=== PATIENT | male | born 1980 | race Two or more races ===

== ENCOUNTER 2019-06-26 09:44 | Inpatient (IN) | payer OTHER ==
[~2019-06-26] VITALS: Ht 188 cm; Wt 116.2 kg
[2019-06-26] VITALS (13 sets, daily range): BP systolic 118–171; BP diastolic 72–103
[2019-06-26] MEDS ORDERED: fentaNYL 100 mcg/2 mL IV ONE (10:03)
[2019-06-26] MEDS ORDERED: Midazolam 2mg/2ml Inj ONE (10:03)
[2019-06-26] MEDS ORDERED: DiphenhydrAMINE 25mg Tab ORAL PRN (10:15)
[2019-06-26] MEDS ORDERED: Chloraseptic Spray 20mL Bottle ORAL PRN (10:15)
[2019-06-26] MEDS ORDERED: Morphine Sulfate 4mg/ml Inj (IV USE ONLY) IM PRN (10:15)
[2019-06-26] MEDS ORDERED: HYDROcodone/Acetamin 10/325 tab ORAL PRN (10:15)
[2019-06-26] MEDS ORDERED: TYLENOL EXTRA500 MG ORAL (10:25)
[2019-06-26] MEDS ORDERED: Lidocaine 1% MPF 10mg/ml 5ml ONE (10:25)
[2019-06-26] MEDS ORDERED: IBUPROFEN600 MG ORAL (10:25)
[2019-06-26] MEDS ORDERED: LORazepam 0.5mg tab ORAL PRN (10:30)
[2019-06-26 10:45] LABS: BASOPHILS % (AUTO) 0.9 % (0.0-2.0); EOSINOPHILS % (AUTO) 8.8 % (0.0-3.0); HEMOGLOBIN 14.3 G/DL (14.2-18.0); MEAN CORPUSCULAR VOLUME 91 FL (80-99); NEUTROPHILS % (AUTO) 63.4 % (45.0-75.0); PLATELET COUNT 208 K/UL (150-450); RED BLOOD COUNT 4.51 M/UL (4.70-6.10); RED CELL DISTRIBUTION WIDTH 11.5 % (11.6-14.8); WHITE BLOOD COUNT 9.4 K/UL (4.8-10.8)
[2019-06-26] MEDS ORDERED: Heparin 5000 units/ml inj ONE (11:07)
[2019-06-26] MEDS ORDERED: Thrombin 5000 units TOPIC ONE ×2 (11:07→11:13)
[2019-06-26] MEDS ORDERED: Gelfoam Size TOPIC ONE (11:08)
[2019-06-26] MEDS ORDERED: Bacitracin 50000 Units Vial ONE (11:08)
[2019-06-26] MEDS ORDERED: Bupivacaine w/Epi 0.5% 30ml Vial INJ ONE (11:08)
--- NOTE | 2019-06-26 11:24 | Pre-Procedure Note/Attestation ---
Pre-Procedure Note/Attestation Complete Prior to Procedure Planned Procedure: not applicable Procedure Narrative: L5/S1 ALIF Indications for Procedure Pre-Operative Diagnosis: Back pain, Lumbar radiculapathy, Lumbar disk herniation Attestation I attest that I discussed the nature of the procedure; its benefits; risks and complications; and alternatives (and the risks and benefits of such alternatives ), prior to the procedure, with the patient (or the patient's legal industrial relations representative). I attest that, if there was a reasonable possibility of needing a blood transfusion, the patient (or the patient's legal industrial relations representative) was given the [facility] standardized written summary, pursuant to the Luiz Elizabeth Blood Safety Act ([place] Health and Safety Code # 1645, as amended). I attest that I re-evaluated the patient just prior to the surgery and that there has been no change in the patient's H&P, except as documented below: KAMAR TENA M.D. Jun 26, 2019 11:24
[2019-06-26] MEDS ORDERED: Rocuronium Bromide 50mg/5ml Inj IV ONE (11:26)
[2019-06-26] MEDS ORDERED: Succinylcholine 20mg/ml 10ml vial ONE (11:26)
[2019-06-26] MEDS ORDERED: Acetaminophen IV (Non formulary) 1,000 MG/100 ML ML IV ONE (11:32)
[2019-06-26] MEDS ORDERED: Sterile Water Irrig 1000ml IRRIG ONE (11:32)
[2019-06-26] MEDS ORDERED: LR 1000ml ONE (11:32)
[2019-06-26] MEDS ORDERED: NS Irrig 1000ml ONE (11:32)
[2019-06-26] MEDS ORDERED: NS Irrig 1000ml IRRIG ONE ×2 (12:08→12:51)
[2019-06-26] MEDS ORDERED: Morphine Sulfate 10mg/ml Inj ONE (12:36)
[2019-06-26] MEDS ORDERED: Sodium Chloride 10ml vial INJ ONE (12:38)
[2019-06-26] MEDS ORDERED: Acetaminophen (Non formulary) 100 ML IV ONE (12:45)
--- NOTE | 2019-06-26 12:51 | Anethesia Preoperative Eval ---
Anesthesia Pre-op PMH/ROS General Date of Evaluation: Jun 26, 2019 Time of Evaluation: 11:20 Anesthesiologist: Nancy ASA Score: ASA 2 Mallampati Score Class I : Soft palate, uvula, fauces, pillars visible Class II: Soft palate, uvula, fauces visible Class III: Soft palate, base of uvula visible Class IV: Only hard plate visible Mallampati Classification: Class II Surgeon: Leana Diagnosis: Lumbar radiculopathy Surgical Procedure: Anterior L5-S1 fusion Anesthesia History: none Family History: no anesthesia problems Allergies: Coded Allergies: Cultivated Oat Pollen (Verified Allergy, Intermediate, watery eyes; sneezing, 06/25/19) Medications: see eMAR Patient NPO?: Yes NPO Date: Jun 25, 2019 NPO Time: 2099 Past Medical History Cardiovascular: Denies: HTN, CAD, GA, valve dz, arrhythmia, other Pulmonary: Denies: asthma, COPD, CHARISSE, other Gastrointestinal/Genitourinary: Reports: GERD; Denies: CRI, ESRD, other Neurologic/Psychiatric: Reports: other - chronic pain; Denies: dementia, CVA, depression/anxiety, TIA Endocrine: Denies: DM, hypothyroidism, steroids, other HEENT: Denies: cataract (L), cataract (R), glaucoma, TORRES MARTINEZ (L), TORRES MARTINEZ (R), other Hematology/Immune: Denies: anemia, DVT, bleeding disorder, other Musculoskeletal/Integumentary: Denies: OA, RA, DJD, DDD, edema, other Other: other - overweight PMH Narrative: As above PSxH Narrative: Appendectomy Anesthesia Pre-op Phys. Exam Physician Exam Last Vital Signs Date Time Temp Pulse Resp B/P (MAP) Pulse Ox O2 Delivery O2 Flow Rate FiO2 06/26/19 10:33 Room Air 06/26/19 10:17 97.6 54 18 120/73 (89) 97 Constitutional: NAD Neurologic: CN 2-12 intact Cardiovascular: RRR, no M/R/G Respiratory: CTA Gastrointestinal: S/NT/ND Airway Exam Mallampati Score: Class II MO: full Neck: flexible ROM: full Teeth: intact Dentures: no upper, no lower Anesthesia Pre-op A/P Labs Hematology Test 06/26/19 10:17 White Blood Count 9.4 K/UL (4.8-10.8) Red Blood Count 4.51 M/UL (4.70-6.10) L Hemoglobin 14.3 G/DL (14.2-18.0) Hematocrit 41.0 % (42.0-52.0) L Mean Corpuscular Volume 91 FL (80-99) Mean Corpuscular Hemoglobin 31.7 PG (27.0-31.0) H Mean Corpuscular Hemoglobin Concent 34.9 G/DL (32.0-36.0) Red Cell Distribution Width 11.5 % (11.6-14.8) L Platelet Count 208 K/UL (150-450) Mean Platelet Volume 6.9 FL (6.5-10.1) Neutrophils (%) (Auto) 63.4 % (45.0-75.0) Lymphocytes (%) (Auto) 19.0 % (20.0-45.0) L Monocytes (%) (Auto) 8.0 % (1.0-10.0) Eosinophils (%) (Auto) 8.8 % (0.0-3.0) H Basophils (%) (Auto) 0.9 % (0.0-2.0) Studies Pre-op Studies: EKG - SR Risk Assessment & Plan Assessment: ASA 2 Plan: GA with ETT neuromonitoring Status Change Before Surgery: No Pre-Antibiotics Drug: Ancef 2gr Given Within 1 Hr of Incision: Yes Time Given: 12:10 Tim Cruz MD Jun 26, 2019 12:51
[2019-06-26] MEDS ORDERED: LR 1000ml 1,000 ML IVLG SCH (12:57)
[2019-06-26] MEDS ORDERED: Hydromorphone 0.5mg/0.5ml inj IVP PRN (13:00)
[2019-06-26] MEDS ORDERED: Ketorolac 30mg Inj IV PRN (13:00)
[2019-06-26] MEDS ORDERED: Meperidine 25mg/0.5ml Inj (FOR RIGORS ONLY) IV PRN (13:00)
[2019-06-26] MEDS ORDERED: DiphenhydrAMINE 50mg/ml Inj IVP PRN (13:00)
[2019-06-26] MEDS ORDERED: Ketorolac 30mg Inj ONE (13:11)
[2019-06-26] MEDS ORDERED: Glycopyrrolate 0.2mg/ml 1ml Vial ONE (13:11)
[2019-06-26] MEDS ORDERED: PCA Education Pamphlet MISC ONE (13:45)
[2019-06-26] MEDS ORDERED: Rate Change PCA 1 Each MISC PRN (13:45)
[2019-06-26] MEDS ORDERED: Propofol 200mg/20ml IV ONE (14:00)
--- NOTE | 2019-06-26 14:31 | Brief Operative Note ---
Immediate Post Operative Note Operative Note Chief Complaint: Back pain, Lumbar radiculapathy, Disk herniation Pre-op Diagnosis: Back pain, Lumbar radiculapathy, Lumbar disk herniation Procedure: L5/S1 anterior lumbar interbody fusion Post-op Diagnosis: Same as preop Post-op Diagnosis: same as pre-op Surgeon: John Dueñas Delivery Tech: Tomer Crocker Additional Surgeons: Kris Reagan Anesthesiologist: Camden Anesthesia: general Specimen: yes - L5/S1 disk Complications: none Condition: stable Fluids: see anesthesia record Estimated Blood Loss: volume - 30cc Drains: none Packing: None Implant(s) used?: Yes - L5/S1 interbody Cage. KAMAR DUEÑAS M.D. Jun 26, 2019 14:31
--- NOTE | 2019-06-26 14:43 | Immediate Post-Op Evaluation ---
Immediate Post-Op Evalulation Immediate Post-Op Evalulation Procedure: Anterior L5-S1 discectomy fusion Date of Evaluation: Jun 26, 2019 Time of Evaluation: 14:42 IV Fluids: 1600 Blood Products: none Estimated Blood Loss: 50 Urinary Output: 200 Blood Pressure Systolic: 142 Blood Pressure Diastolic: 78 Pulse Rate: 62 Respiratory Rate: 22 O2 Sat by Pulse Oximetry: 99 Temperature (Fahrenheit): 97.7 Pain Score (1-10): 1 Nausea: No Vomiting: No Complications none Patient Status: reacts, patent, extubated, none Hydration Status: adequate Tim Cruz MD Jun 26, 2019 14:43
[2019-06-26] MEDS: PCA Morphine 1mg/ml 30 ML IV PRN (15:16)
--- NOTE | 2019-06-26 15:20 | Diagnostic Imaging Report ---
Indication: Intraoperative imaging COMPARISON: None FINDINGS: Multiple fluoroscopic images were obtained intraoperatively. Crosstable images in the operating room show localization of L5-S1 followed by anterior discectomy and fusion. IMPRESSION: Intraoperative imaging as described above
[2019-06-26] MEDS ORDERED: D5 1/2NS 1,000 ML IV SCH (15:48)
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
--- NOTE | 2019-06-26 16:00 | NUR ---
NURSE NOTES: Patient arrived to unit at 1545 via bed, accompanied by RN. Received report from Emelina WILCOX. Belongings checked at bedside with Emelina RN. Patient is drowsy but arousable to voice, able to follow commands, no acute distress noted, reporting no pain at this time. Surgical site dressing clean and intact, IV intact and patent. On PLANT ANATOMIST, settings checked and verified against order. Patient placed on etc02 monitoring, placed on continuous pulseox. Orellana to gravity drainage, draining clear, yellow urine. SCD's on. Side rails upx3, bed low and locked, call light within reach.
--- NOTE | 2019-06-26 18:40 | NUR ---
NURSE NOTES: Called Dr. Frost regarding cotton catheter (no order for d/c entered), and no post op antibiotics ordered. Left voicemail, awaiting callback.
[2019-06-26] MEDS: D5 1/2NS 1,000 ML IV SCH (19:18)
--- NOTE | 2019-06-26 19:18 | NUR ---
NURSE NOTES: Received callback from Dr. Frost. Orders received, read back and entered.
[2019-06-26] MEDS: PCA shift volume MISC SCH (19:25)
--- NOTE | 2019-06-26 19:30 | NUR ---
NURSE NOTES: Received pt from JERI Romo. AAO x 4, on room air. IV site intact and running IVF. Orellana secured and draining well by gravity. STRIP CATCHER setting checked. Surgical dressing dry and clean. SCD's on. No labored breathing. Bed locked, lowest position, side rails up, call light within reach. Will continue to monitor.
[2019-06-26] MEDS: LORazepam 0.5mg tab ORAL SCH (20:08)
[2019-06-26] MEDS: Dronabinol 2.5mg Cap ORAL SCH (20:08)
[2019-06-26] MEDS: ceFAZolin 1gm/50ml Premix 50 ML IV SCH (20:08)
--- NOTE | 2019-06-26 22:30 | Operative Note - Dictated ---
DATE OF OPERATION: 06/26/2019 PREOPERATIVE DIAGNOSIS: Radiculopathy. POSTOPERATIVE DIAGNOSIS: Radiculopathy. PROCEDURE: 1. Anterior retroperitoneal exposure, interbody fusion L5-S1. 2. Ligation of the middle sacral artery and vein. 3. Mobilization of the right and left iliac artery and vein. 4. Mobilization of the left iliac artery and vein. SURGEON: Dejan Reagan M.D. CO-SURGEON: John Dueñas M.D. ANESTHESIA: General. EBL: 50 mL. OPERATIVE NOTE: Risks, benefits, complications, alternative therapies explained to the patient. Consent obtained. Risks and benefits have been explained to the patient included, but not limited to bleeding, infection, damage to bowel, damage to ureter, wound infection, wound dehiscence, DVT, PE, loss of limb, loss of life, high-risk nature of the operation, the possibility of retrograde ejaculation, sexual dysfunction fully explained and stressed to the patient. All questions answered. OPERATIVE TECHNIQUE: The patient was placed in supine position. I made a 10 cm incision in the left lower quadrant. Incision was taken down to the subcutaneous tissue, which was then opened using electrocautery. Left anterior rectus sheath was opened in the direction of the wound. Left rectus muscle was mobilized superiorly and inferiorly. I entered the retroperitoneal space. Bookwalter retractor was placed retracting the bowel contents to the right and left rectus muscle to the left. I dissected the left common iliac artery and vein, external iliac artery and vein. The middle sacral artery and vein was ligated using titanium clip. Using titanium clip, the right common iliac artery and vein were mobilized to the right, left common iliac artery and vein was mobilized to the left. We proceeded with diskectomy and placement of the new cage. Please refer to Dr. Dueñas's dictation for the details of that operation. After all the x-rays were satisfactory and read by Dr. Dueñas, needle count and sponge count was correct. The wound was irrigated using antibiotic solution. Anterior rectus sheath was closed using #1 Vicryl suture in a running fashion with interrupted sutures in the middle. The wound was irrigated and closed in 2 layers of 2-0 Vicryl suture for subcutaneous and Steri-Strips for the skin. The patient tolerated the procedure well. Dejan Reagan MD DR: JAYCE JOB#: [id number] CC:
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
[2019-06-27] VITALS: BP 122/80
[2019-06-27] MEDS: D5 1/2NS 1,000 ML IV SCH ×4 (01:13→21:40)
[2019-06-27] MEDS: ceFAZolin 1gm/50ml Premix 50 ML IV SCH ×2 (03:09→12:04)
[2019-06-27 03:56] VITALS: BP 128/78
--- NOTE | 2019-06-27 04:30 | NUR ---
NURSE NOTES: Pt reports hasn't passed flatus yet.
[2019-06-27 06:37] LABS: BASOPHILS % (AUTO) 0.4 % (0.0-2.0); EOSINOPHILS % (AUTO) 1.9 % (0.0-3.0); HEMATOCRIT 37.5 % (42.0-52.0); HEMOGLOBIN 13.4 G/DL (14.2-18.0); LYMPHOCYTES % (AUTO) 11.8 % (20.0-45.0); MEAN CORPUSCULAR VOLUME 91 FL (80-99); MONOCYTES % (AUTO) 7.7 % (1.0-10.0); NEUTROPHILS % (AUTO) 78.2 % (45.0-75.0); PLATELET COUNT 181 K/UL (150-450); RED BLOOD COUNT 4.15 M/UL (4.70-6.10); RED CELL DISTRIBUTION WIDTH 11.6 % (11.6-14.8)
[2019-06-27 06:42] LABS: ANION GAP 9 mmol/L (5-15); BLOOD UREA NITROGEN 7 mg/dL (7-18); CALCIUM 8.1 MG/DL (8.5-10.1); CARBON DIOXIDE 26 MMOL/L (21-32); CHLORIDE 106 MMOL/L (98-107); CREATININE 0.8 MG/DL (0.55-1.30); POTASSIUM 3.6 MMOL/L (3.5-5.1); SODIUM 141 MMOL/L (136-145)
[2019-06-27] MEDS: PCA shift volume MISC SCH ×2 (07:27→19:20)
--- NOTE | 2019-06-27 07:30 | NUR ---
HAND-OFF: Report given to JERI Perez.
[2019-06-27 08:00] VITALS: BP 119/74
--- NOTE | 2019-06-27 08:00 | NUR ---
NURSE NOTES: Pt lying in bed w/bed in lowest position and call light/HAM ROLLING MACHINE OPERATOR button within reach. Pt A&Ox4, VSS, and in no apparent distress; pt sleeping but easily arousable. IV site intact/asymptomatic w/IVF infusing; surgical dressing C/D/I; and F/C patent/draining well. Pt states he already passed gas and has no complaints or concerns at this time. Will continue to monitor.
--- NOTE | 2019-06-27 08:20 | 48 Hour Post Anesthesia Eval ---
Post Anesthesia Evaluation Procedure: Anterior L5-S1 discectomy fusion Date of Evaluation: Jun 27, 2019 Time of Evaluation: 08:19 Blood Pressure Systolic: 128 0: 78 Pulse Rate: 58 Respiratory Rate: 18 Temperature (Fahrenheit): 98.7 O2 Sat by Pulse Oximetry: 99 Airway: patent Nausea: No Vomiting: No Pain Intensity: 3 Hydration Status: adequate Cardiopulmonary Status: Stable Mental Status/LOC: patient returned to baseline Follow-up Care/Observations: 0 Post-Anesthesia Complications: 0 Follow-up care needed: N/A Elmo Cartwright MD Jun 27, 2019 08:20
[2019-06-27] MEDS: Dronabinol 2.5mg Cap ORAL SCH ×2 (08:28→20:20)
[2019-06-27] MEDS: Docusate 100mg cap ORAL SCH ×2 (08:28→17:43)
[2019-06-27 12:00] VITALS: BP 136/81
--- NOTE | 2019-06-27 13:23 | General Surgery Progress Note ---
General Surgery-Progress Note Subjective Procedure Performed L5/S1 anterior lumbar interbody fusion Symptoms: improved - Patient reeport significant improvment in pain and resolution of leg pain. , passing flatus, pain decreased Objective Last 24 Hour Vital Signs Date Time Temp Pulse Resp B/P (MAP) Pulse Ox O2 Delivery O2 Flow Rate FiO2 06/27/19 12:00 98.8 63 18 136/81 (99) 96 06/27/19 09:00 Room Air 06/27/19 09:00 18 06/27/19 08:20 58 18 99 06/27/19 08:00 97.8 56 18 119/74 (89) 96 06/27/19 07:00 99 Nasal Cannula 2.0 28 06/27/19 04:00 18 06/27/19 03:56 98.7 58 18 128/78 (95) 99 06/27/19 00:00 98.1 63 19 122/80 (94) 96 06/27/19 00:00 18 06/26/19 21:00 Room Air 06/26/19 20:00 99.0 60 19 118/76 (90) 98 06/26/19 20:00 17 06/26/19 18:00 16 06/26/19 17:45 60 16 135/88 (104) 100 06/26/19 17:01 100 Nasal Cannula 2.0 28 06/26/19 17:00 12 06/26/19 16:45 66 12 137/89 (105) 100 06/26/19 16:30 12 06/26/19 16:15 64 12 139/89 (106) 100 06/26/19 16:15 12 06/26/19 16:00 18 06/26/19 15:45 98.3 62 12 139/89 (106) 100 06/26/19 15:45 97.6 58 18 158/93 100 Nasal Cannula 3 06/26/19 15:45 20 06/26/19 15:31 97.2 61 20 165/94 100 Nasal Cannula 3 06/26/19 15:30 19 06/26/19 15:16 22 06/26/19 15:15 61 22 163/97 100 Nasal Cannula 3 06/26/19 15:00 57 21 162/97 100 Nasal Cannula 3 06/26/19 14:50 61 22 171/103 99 Nasal Cannula 3 06/26/19 14:45 67 18 155/101 100 Simple Mask 6 06/26/19 14:43 62 22 99 06/26/19 14:40 63 16 151/97 100 Simple Mask 6 06/26/19 14:36 97.1 69 14 145/72 100 Simple Mask 6 I&O Intake and Output 06/26/19 06/27/19 19:00 07:00 Intake Total 1850 ml 1600 ml Output Total 525 ml 1900 ml Balance 1325 ml -300 ml Intake IV Total 1850 ml 1600 ml Output Urine Total 475 ml 1900 ml Estimated Blood Loss 50 ml # Voids 1 Dressing: dry Wound: dry Drains: none Abdomen: soft, non-distended Extremities: no edema - 09/24 motror strength. Laboratory Tests Test 06/27/19 05:23 White Blood Count 11.0 K/UL (4.8-10.8) H Red Blood Count 4.15 M/UL (4.70-6.10) L Hemoglobin 13.4 G/DL (14.2-18.0) L Hematocrit 37.5 % (42.0-52.0) L Mean Corpuscular Volume 91 FL (80-99) Mean Corpuscular Hemoglobin 32.3 PG (27.0-31.0) H Mean Corpuscular Hemoglobin Concent 35.6 G/DL (32.0-36.0) Red Cell Distribution Width 11.6 % (11.6-14.8) Platelet Count 181 K/UL (150-450) Mean Platelet Volume 7.5 FL (6.5-10.1) Neutrophils (%) (Auto) 78.2 % (45.0-75.0) H Lymphocytes (%) (Auto) 11.8 % (20.0-45.0) L Monocytes (%) (Auto) 7.7 % (1.0-10.0) Eosinophils (%) (Auto) 1.9 % (0.0-3.0) Basophils (%) (Auto) 0.4 % (0.0-2.0) Sodium Level 141 MMOL/L (136-145) Potassium Level 3.6 MMOL/L (3.5-5.1) Chloride Level 106 MMOL/L (98-107) Carbon Dioxide Level 26 MMOL/L (21-32) Anion Gap 9 mmol/L (5-15) Blood Urea Nitrogen 7 mg/dL (7-18) Creatinine 0.8 MG/DL (0.55-1.30) Estimat Glomerular Filtration Rate > 60 mL/min (>60) Glucose Level 120 MG/DL (74-106) H Calcium Level 8.1 MG/DL (8.5-10.1) L Assessment Post-op Diagnosis Same as preop Additional Comments Patient POD #1 s/p L5/S1 ALIF. Patient doing well, with postibve bowel sounds and passing flatus. Rec. advance diet as tolerated. Plan Additional Comments PT/OT with brace. Pain Mgt per Dr Frost Advance diet as tolerated. KAMAR TENA M.D. Jun 27, 2019 13:23
--- NOTE | 2019-06-27 13:30 | NUR ---
P.T Note: P.T evaluation completed and tx initiated. Please refer to P.T evaluation for current functional status. Skilled P.T service is warranted to ensure safety and compliance with spinal precaution in performing ADL/functional mobilities.Thank you for this referral.
[2019-06-27 16:00] VITALS: BP 140/91
--- NOTE | 2019-06-27 16:52 | NUR ---
CASE MANAGEMENT: INITIAL REVIEW 39YR OLD MALE HERE FOR ELECTIVE SURGERY CC: BACK PAIN, LUMBAR RADICULOPATHY, DISK HERNIATED SI: BACK PAIN, LUMBAR RADICULOPATHY, DISK HERNIATED 97.6 54 18 120/73 97% ON RA RBC 4.51 Hct 41.0 IS: IN SURGERY NOW L5/S1 ANTERIOR LUMBAR INTERBODY FUSION \:3E MED SURG UNIT CASE MANAGEMENT: REVIEW 06/27/2019 SI: POD# 1 L5/S1 ANTERIOR LUMBAR INTERBODY FUSION BACK PAIN, LUMBAR RADICULOPATHY, DISK HERNIATED 98.7 58 18 128/78 99% ON RA BG 120 CA+ 8.1 IS:IVF D5@150ML/HR MOTOR COACH TOUR OPERATOR MORPHINE SULFATE MARINOL PO BID \:3E MED SURG UNIT PLAN: START ON CLEAR LIQ DIET GELY GORE
[2019-06-27] MEDS: PCA Morphine 1mg/ml 30 ML IV PRN ×2 (17:41→22:57)
--- NOTE | 2019-06-27 18:00 | NUR ---
NURSE NOTES: Changed AERIAL APPLICATOR PILOT Morphine syringe per 24 hour protocol and wasted 19.1 ml of morphine w/pharmacist. New syringe had starting volume of 27.6 ml of Morphine.
--- NOTE | 2019-06-27 19:27 | NUR ---
HAND-OFF: Report given to JERI Coronado.
--- NOTE | 2019-06-27 19:30 | NUR ---
NURSES NOTE: Met pt in bed, A/O X4, able to express needs. Patient denies pain currently. Breathing is even and unlabored on RA. FORKLIFT TECHNICIAN pump set up, Morphine- effective. Neuro checks q8h. L hand IV patent, no s/s of infection or infiltration. Orellana catheter intact, patent, draining according to gravity. Dressing, anterior abdomen, is clean, dry and intact. All due meds will be given. Call light within reach, bed at lowest level. Pt will continue to be monitored.
[2019-06-27 20:00] VITALS: BP 130/80
[2019-06-27] MEDS: LORazepam 0.5mg tab ORAL SCH (20:21)
[2019-06-27] MEDS ORDERED: D5 1/2NS 1000ml IV ONE (22:24)
[2019-06-28] VITALS: BP 138/81
--- NOTE | 2019-06-28 02:31 | Progress Note ---
DATE: 06/27/2019 ACUTE PAIN MANAGEMENT PHYSICIAN PROGRESS NOTE MEDICATIONS: Medication administration record reviewed. Medications include Chloraseptic spray, Zofran, Narcan, morphine MAPLE SYRUP MAKER p.r.n. and nightly Ativan, [place], Pepcid, Marinol, Colace, Benadryl, Catapres, and Mylanta. LABORATORY STUDIES: From this morning, 06/27/2019 shows white count of 11, hematocrit 38, and platelets 181. Sodium 141, potassium 3.6, chloride 106, bicarb 26, BUN 7, creatinine 0.8, glucose 120, and calcium 8.1. OBJECTIVE: VITAL SIGNS: Within normal limits. Afebrile, pulse 67, respirations 20, blood pressure 130/80, and oxygen saturation 100% on room air. I spent over 60 minutes in consultation today. I saw the patient at bedside with the nurse RN, Savannah. I discussed the case with the surgeon, Dr. Dueñas. The patient ambulated with physical therapy today. He is grossly neurologically intact. The surgeon, Dr. Dueñas examined the patient at the bedside and was pleased with the patient's reported improvement in back pain and leg pain, compared to preop. Dr. Dueñas advanced the patient's diet to full liquid, as he has been tolerating clear liquid diet after passing flatus earlier this morning. If the patient continues to tolerate his diet, we will advance his diet as tolerated. The patient will continue ambulating with physical therapy. A lumbar spine back brace was delivered and a front-wheeled walker and a raised toilet seat were requested by the surgeon. The patient is discussing with his insurance defense attorney to help obtain a home hospital bed. The patient is using his morphine MAPLE SYRUP MAKER generously to help with his pain control. I did discuss with the patient the opportunity to try to trial him off of the MAPLE SYRUP MAKER tomorrow on postop day #2, to help encourage out of bed with less connected tubings. The patient agrees with the trial. Early tomorrow morning on postop day #2, we will discontinue the Orellana catheter. We will Hep-Lock his IV fluids and discontinue the MAPLE SYRUP MAKER, making ambulation and moving in and out of bed easier, especially with trips to the restroom. I will dose the patient with one time oral Flomax to help reduce the risk for urinary retention issues. I will increase the scheduled Marinol from q.12 h. to q.8 h., the patient states this medication has been helpful for his pain control as well for anxiolysis. I would then continue the p.r.n. intramuscular morphine and oral [place] for breakthrough analgesia. I have left a prescription for [place] for outpatient usage. Ander Frost M.D. DR: DENISE JOB#: [id number] CC:
[2019-06-28 04:00] VITALS: BP 136/84
--- NOTE | 2019-06-28 04:48 | NUR ---
NURSES NOTE: Orellana to be D/C at 0600. Last syringe of Morphine per Dr Frost request, then d/c BRIEFCASE SEWER. Hep lock IV, D/C fluids after current bag.
[2019-06-28] MEDS: Dronabinol 2.5mg Cap ORAL SCH ×3 (05:10→22:07)
[2019-06-28] MEDS: PCA shift volume MISC SCH (07:00)
--- NOTE | 2019-06-28 07:20 | NUR ---
HAND OFF: Report given to JERI Yan.
--- NOTE | 2019-06-28 07:30 | NUR ---
NURSE NOTES: Patient is in bed awake and able to verbalize needs. Stable. Denies pain or SOB. Patient is using TOW DRIVER as ordered. Breathing is even and unlabored. Plan of care discussed with patient. Surgical dressing c/d/i. Patient urinated into urinal, dark john urine noted. No c/o burning or discomfort. Patient is in bed in locked and lowest position with call light within reach. All safety measures provided. Will continue to monitor.
[2019-06-28 08:00] VITALS: BP 147/79
[2019-06-28] MEDS: Docusate 100mg cap ORAL SCH ×2 (08:53→18:06)
--- NOTE | 2019-06-28 09:54 | NUR ---
CASE MANAGEMENT: REVIEW 06/28/2019 SI: POD# 2 L5/S1 ANTERIOR LUMBAR INTERBODY FUSION BACK PAIN, LUMBAR RADICULOPATHY, DISK HERNIATED 98.3 85 20 136/84 96% ON RA IS:IVF D5@150ML/HR TUNNELLER MORPHINE SULFATE MARINOL PO Q8HR \:3E MED SURG UNIT PLAN: START ON FULL LIQ DIET PT EVAL CONTROL PAIN
[2019-06-28 12:00] VITALS: BP 153/103
--- NOTE | 2019-06-28 13:37 | NUR ---
NURSE NOTES: Patient's IV came out while repositioning in bed. Pressure applied at IV site and dry dressing applied. Dr. Frost notified.
--- NOTE | 2019-06-28 14:15 | Orthopedic Spine Progress Note ---
Ortho Spine - Progress Note Subjective Symptoms: improved Objective Vital Signs: Last 24 Hour Vital Signs Date Time Temp Pulse Resp B/P (MAP) Pulse Ox O2 Delivery O2 Flow Rate FiO2 06/28/19 12:00 98.1 82 18 153/103 (120) 99 06/28/19 09:00 Room Air 06/28/19 08:00 97.6 74 20 147/79 (101) 97 06/28/19 08:00 74 20 97 06/28/19 07:44 100 Nasal Cannula 2.0 28 06/28/19 04:00 98.3 85 20 136/84 (101) 96 06/28/19 04:00 20 06/28/19 00:00 98.5 70 20 138/81 (100) 96 06/28/19 00:00 20 06/27/19 21:00 Room Air 06/27/19 20:32 100 Nasal Cannula 2.0 28 06/27/19 20:00 20 06/27/19 20:00 98.6 67 20 130/80 (97) 94 06/27/19 16:00 98.7 76 18 140/91 (107) 96 06/27/19 16:00 18 I&O: Intake and Output 06/27/19 06/28/19 19:00 07:00 Intake Total 3475 ml 1470 ml Output Total 3275 ml 3500 ml Balance 200 ml -2030 ml Intake Oral 2000 ml 720 ml IV Total 1475 ml 750 ml Output Urine Total 3275 ml 3500 ml Wound: clean, dry, intact Drains: none Neuro Status: stable - improved strrnght in LE Assessment Post-op Diagnosis: Same as preop Procedure Performed: L5/S1 anterior lumbar interbody fusion Plan Plan: PT, discharge plan - Discharge planning per Additional Comments: Discharge Planning per Dr Frost. Patient to see me in clinic next . KAMAR TENA M.D. Jun 28, 2019 14:15
[2019-06-28 16:00] VITALS: BP 138/78
--- NOTE | 2019-06-28 16:15 | Progress Note ---
DATE: 06/28/2019 ACUTE PAIN MANAGEMENT PHYSICIAN PROGRESS NOTE MEDICATIONS: Medication administration record reviewed. Medications include Tylenol, Mylanta, Catapres, Benadryl, Colace, Marinol, Pepcid, [place], Ativan, morphine, Zofran, Chloraseptic spray. LABORATORY STUDIES: From yesterday, 06/27/2019 shows white count 11, hematocrit 38, platelets 181,000. OBJECTIVE: Afebrile, pulse 82, respirations 18, blood pressure 147/79, oxygen saturation 99% on room air. I spent over 60 minutes in consultation today. I saw the patient at bedside with the nurse RN, Amanda. I discussed the case with the surgeon, Dr. Dueñas. The Orellana catheter was removed this morning, the patient has been voiding urine successfully. The patient continues to tolerate advancing diet. He tolerated full liquid, we will trial him on a mechanical soft diet for dinner tonight. If that goes well, we will place him on a regular diet, tomorrow for breakfast. The patient continues to pass flatus frequently. He feels a sensation for having a bowel movement, but has not yet had a bowel movement yet. We will continue him on Colace b.i.d. as a stool softener. The patient has been tolerating at bedtime Ativan without any difficulties. The patient will remain on b.i.d. Pepcid for GI ulcer prophylaxis. I increased the dosing of Marinol yesterday to q.8 h., and this dose has been well tolerated and providing good analgesia. The patient has received intramuscular morphine for breakthrough pain, which did also work successfully. I have asked the nurse to dose the patient with [place] with dinner tonight to check for tolerability and efficacy. The patient's collections attorney visited earlier today and is arranging for the patient to receive a new mattress at his home. I also suggested to the patient that he have his collections attorney's office, help expedite dispensing of the [place] prescription, which I left for outpatient usage. The patient has been Hep-Lock from his IV fluids, as he is taking in good oral intake. The patient shows no signs of anxiety or oversedation. We will continue supportive care with hopes the patient to be able to discharge to home in the next 24 hours. Ander Ashish Frost DR: DARREN JOB#: [id number] CC:
--- NOTE | 2019-06-28 19:30 | NUR ---
HAND-OFF: Report given to Savannah WILCOX. Patient is stable.
--- NOTE | 2019-06-28 19:35 | NUR ---
NURSES NOTE: Met pt in bed, A/OX4, denies pain currently. No outward s/s of distress noted. Breathing pattern is even and unlabored on RA. No IV access, Dr Frost made aware. Pt is urinating using the urinal without incident since removal of cotton cath at 0600. Soft diet tolerated well thus far. All due meds will be given. Bed at lowest level, call light within reach. Patient will continue to be monitored.
[2019-06-28 20:00] VITALS: BP 127/89
[2019-06-28] MEDS: LORazepam 0.5mg tab ORAL SCH (21:10)
[2019-06-29] VITALS: BP 130/91
[2019-06-29 04:00] VITALS: BP 119/72
[2019-06-29] MEDS: Dronabinol 2.5mg Cap ORAL SCH (06:17)
--- NOTE | 2019-06-29 07:30 | NUR ---
NURSE NOTES: Patient is awake and ambulating in hallway. Patient denies pain or SOB. Patient is stable. Plan of care discussed with patient in privacy. Patient continues to ambulate in hallway. All needs met at this time. Will continue to monitor.
--- NOTE | 2019-06-29 07:38 | NUR ---
HAND OFF: Report given to JERI Patel.
[2019-06-29 08:00] VITALS: BP 130/82
--- NOTE | 2019-06-29 08:31 | NUR ---
CASE MANAGEMENT: REVIEW 06/29/2019 SI: POD# 2 L5/S1 ANTERIOR LUMBAR INTERBODY FUSION BACK PAIN, LUMBAR RADICULOPATHY, DISK HERNIATED 99.1 71 20 119/72 97% ON RA IS:TOOL STRAIGHTENER MORPHINE SULFATE MARINOL PO Q8HR \:3E MED SURG UNIT PLAN: ADVANCE TO REG DIET
[2019-06-29] MEDS: Docusate 100mg cap ORAL SCH (08:48)
--- NOTE | 2019-06-29 08:50 | NUR ---
NURSE NOTES: Patient had a BM this morning. No c/o abdominal pain or discomfort. Patient stated that his dietitian therapeutic did not fill [place] medication and that patient will fill the prescription himself at his own pharmacy.
--- NOTE | 2019-06-29 11:03 | NUR ---
NURSE NOTES: Patient discharged home as ordered. Patient was given thorough discharge instructions by RN and Dr. Frost prior to discharge. Patient verbalized understanding. Patient has prescription and stated that he will take the prescription to be filled at his own pharmacy. Patient has all belongings. Friends are at bedside assisting patient carry belongings into private vehicle. Skin is c/d/i. Surgical site c/d/i. Back brace is on. Patient assisted downstairs by staff without incident. No IV access.
--- NOTE | 2019-06-29 15:45 | Progress Note ---
DATE: 06/29/2019 ACUTE PAIN MANAGEMENT PHYSICIAN PROGRESS NOTE Medication administration record reviewed. Medications include Tylenol, Mylanta, Catapres, Benadryl, Colace, Marinol, Pepcid, [place], Ativan, morphine, and Zofran. LABORATORY STUDIES: No interval laboratory studies. OBJECTIVE: Vital signs - afebrile, pulse 77, respirations 21, blood pressure 130/82. Oxygen saturation is 99% on room air. I spent over 60 minutes in consultation today. I saw the patient at bedside with the nurse, JERI Patel. I discussed the case with the surgeon, Dr. Dueñas. The patient has been ambulating well in the hallways greater than 300 feet. The patient has been tolerating his advancing diet without any difficulties. He has a good appetite and no nausea symptoms. The patient denies any shortness of breath or chest pain. I examined the patient's abdominal wound. The dressing appears clean and dry and intact. We will keep the dressing as-is, until the patient sees Dr. Dueñas back in the outpatient surgical clinic in approximately one week. The patient was instructed to sponge-back only, and to avoid water contact to the incision area. The patient has been compliant using his incentive spirometer and continue the usage at home. A prescription was provided for [place]. The patient also will continue with medical marijuana at home. The patient had two bowel movements this morning and appears to have restored normal bowel function after his ALIF. At this point, I agree with the surgeon for the patient to discharge home. Ander Frost M.D. DR: THAO JOB#: [id number] CC:
--- NOTE | 2019-06-29 23:00 | Discharge Summary ---
DATE OF ADMISSION: 06/26/2019 DATE OF DISCHARGE: 06/29/2019 ADMITTING PHYSICIAN AND SURGEON: Babar Dueñas M.D. STRATEGIC ADVISOR SURGEON: Tomer Crocker M.D. CONSULTING PHYSICIAN: Andre Frost M.D., pain management. ADMITTING DIAGNOSES: 1. Lumbar disk herniation. 2. Lumbar radiculopathy. 3. Back pain. POSTOPERATIVE DIAGNOSES: 1. Lumbar disk herniation. 2. Lumbar radiculopathy. 3. Back pain. HOSPITAL COURSE: The patient was admitted on June 26, 2019 for elective lumbar spine fusion surgery with instrumentation. The patient underwent uncomplicated ALIF surgery and was transferred from the operating room to the recovery room in stable condition. The patient did well in the recovery room and was transferred in stable condition to the orthopedic floor. Serial vital signs and monitoring were performed including laboratory studies. The patient advanced well with physical therapy and his diet. Pain was well controlled and the patient was discharged to home on June 29, 2019 with follow up instructions to visit Dr. Dueñas in his outpatient surgical clinic in approximately one week. There were no complications. Ander Frost M.D. DR: ROBBY JOB#: [id number] CC:
== END 2019-06-29 11:00 | disposition home or self-care (01) | DRG 460 ==
LOC: SDSOVERFLO 09:44 → 3E 15:45
DX: M51.16 Intervertebral disc disorders with radiculopathy, lumbar region (principal); T14.90XS Injury, unspecified, sequela; V49.69XS Unspecified car occupant injured in collision with other motor vehicles in traffic accident, sequela; M48.061 Spinal stenosis, lumbar region without neurogenic claudication; G89.18 Other acute postprocedural pain
CPT/HCPCS: 36415; 72020; 76000; 80048; 85025; 86850; 86900; 86901; 86920; 87081; 94003; 94150; J2250